=== PATIENT | male | born 1995 ===

== ENCOUNTER 2017-07-24 23:10 | Emergency (ER) | payer OTHER ==
[~2017-07-24] VITALS: Ht 162.6 cm; Wt 66.7 kg
[2017-07-24 23:15] VITALS: Ht 162.6 cm; Wt 66.7 kg
[2017-07-24 23:55] VITALS: BP 124/93
== END 2017-07-24 23:55 | disposition other institution (70) ==
LOC: ED 23:10
DX: Z02.89 Encounter for other administrative examinations (principal); S50.812A Abrasion of left forearm, initial encounter; V89.2XXA Person injured in unspecified motor-vehicle accident, traffic, initial encounter; Y93.89 Activity, other specified; Y92.89 Other specified places as the place of occurrence of the external cause; Y99.8 Other external cause status